=== PATIENT | male | born 1980 | race Caucasian/White ===

== ENCOUNTER 2023-04-08 22:48 | Emergency (ER) | payer OTHER ==
[2023-04-08 23:47] LABS: #Basophils 0.1 10x3/uL (0.0-0.2); #Eosinphils 0.1 10x3/uL (0.0-0.5); #Monocytes 0.3 10x3/uL (0.0-1.1); %Basophils 1.1 % (0.0-2.0); %Eosinophils 2.1 % (0.0-6.0); %Lymphocytes 25.6 % (18.0-47.0); %Monocytes 6.4 % (0.0-10.0); %Neutrophils 64.4 % (40.0-75.0); Hematocrit 42.9 % (38.8-50.0); Hemoglobin 14.4 g/dL (13.5-17.5); Mean Corpuscular HGB CONC 33.6 g/dL (32.0-36.0); Mean Corpuscular Hemoglobin 28.3 pg (27.0-33.0); Mean Corpuscular Volume 84.3 fl (81.2-95.1); Mean Platelet Volume 8.3 fl (7.4-10.4); Platelet Count 239 10x3/uL (150-450); RBC Distribution Width 13.7 % (11.5-14.5); Red Blood Cell (RBC) Count 5.09 10x6/uL (4.32-5.72); White Blood Cell (WBC) Count 4.7 10x3/uL (3.5-10.5)
[2023-04-08] MEDS ORDERED: Ketorolac Tromethamine 30 MG (1 mL) VIAL ONE (23:54)
[2023-04-09 00:03] LABS: ALT (SGPT) 57 U/L (8-55); AST (SGOT) 96 U/L (5-34); Albumin 4.8 g/dL (3.5-5.0); Alkaline Phosphatase 144 U/L (40-110); Anion Gap 15 mmol/L (10-20); BUN (Urea Nitrogen) 19 mg/dL (8.9-20.6); Bilirubin, Total 0.2 mg/dL (0.2-1.2); CK (CPK) 2871 U/L (30-200); Calc. Creatinine Clearance 0 mL/min (70-130); Calcium 9.7 mg/dL (7.8-10.44); Carbon Dioxide 25 mmol/L (22-29); Chloride 103 mmol/L (98-107); Estimated GFR 84; Globulin 3.5 g/dL (2.4-3.5); Glucose 165 mg/dL (70-105); Potassium 4.6 mmol/L (3.5-5.1); Protein, Total 8.3 g/dL (6.0-8.3); Sodium 138 mmol/L (136-145)
[2023-04-09] MEDS ORDERED: Bacitracin 1 PK ONE (00:32)
== END 2023-04-09 00:50 | disposition home or self-care (01) ==
LOC: CSHERS 22:48
DX: L03.032 Cellulitis of left toe (principal); I10 Essential (primary) hypertension; E11.9 Type 2 diabetes mellitus without complications; F17.210 Nicotine dependence, cigarettes, uncomplicated
CPT/HCPCS: 36415; 80053; 82550; 83605; 85025; 86140; 87040; 93005; 96374; J1885